=== PATIENT | male | born 1955 | race Caucasian/White ===

== ENCOUNTER → 2023-04-02 | Outpatient (CLI) | payer OTHER, MEDICAID ==
[~2023-04-02] MED LIST: AMOXICILLIN500 MG PO; ASPIRIN81 M1 PO; CLARITIN10 MG PO; FISH OIL1000 MG PO; FLONASE 0.05% 121 EA NAS; MEDROL DOSEPAK4 MG PO
== END | disposition home or self-care (01) ==
LOC: LAB 10:03
PROVIDERS: ATTEND Nurse Practitioner
DX: E87.5 Hyperkalemia (principal)

== ENCOUNTER 2024-03-04 15:27 | Emergency (ER) | payer OTHER, MEDICAID ==
[~2024-03-04] VITALS: Ht 1798 cm; Wt 103.0 kg
[2024-03-04] MEDS ORDERED: LANTUS100 UNIT/1 SC (16:05)
[2024-03-04] MEDS ORDERED: METFORMIN HYDR500 MG PO (16:06)
[2024-03-04] MEDS ORDERED: TOPROL XL25 MG PO (16:06)
[2024-03-04] MEDS ORDERED: ROSUVASTATIN CA10 MG PO (16:06)
[2024-03-04] MEDS ORDERED: LISINOPRIL5 MG PO (16:07)
[2024-03-04] MEDS ORDERED: methylPREDNISolone sod succ 125 MG VIAL IM ONE (16:20)
[2024-03-04] MEDS ORDERED: diphenhydrAMINE hydrochloride 25 MG CAP PO ONE (16:20)
[2024-03-04] MEDS ORDERED: PREDNISONE20 M1 PO (16:24)
[2024-03-04] MEDS ORDERED: BENADRYL ALLERG50 MG PO (16:24)
== END 2024-03-04 17:11 | disposition home or self-care (01) ==
LOC: ED 15:27
DX: L23.7 Allergic contact dermatitis due to plants, except food (principal); I10 Essential (primary) hypertension